=== PATIENT | male | born 1980 | race Caucasian/White ===

== ENCOUNTER 2017-02-16 14:56 | Emergency (ER) | payer SELFPAY ==
[2017-02-16] MEDS ORDERED: KETOROLAC TROMETHAMINE 60 MG/2 ML VIAL ONE (17:17)
--- NOTE | 2017-02-16 18:12 | US ---
Indications: Pain for 4 days. Comparison: None Findings: Multiple grayscale, color-flow and duplex Doppler images during scrotal ultrasound are obtained. Right testis: 4.8 x 2.0 x 3.1 cm with normal blood flow Echogenicity: Normal Epididymis: 1.0 x 1.0 x 0.9 cm. Epididymal head cyst is present measuring 0.4 x 0.3 x 0.2 cm. Other: Multiple small nodes are identified in the area of pain, along the inguinal canal. Largest measures 1.7 x 0.5 x 0.7 cm. Left testis: 4.5 x 2.2 x 2.8 cm with blood flow. Echogenicity: Normal Epididymis: 0.8 x 1.4 x 1.1 cm. Epididymal head cyst is noted measuring 0.1 x 0.1 x 0.2 cm. Other: None Impression: Normal blood flow and echogenicity to the testis bilaterally. Multiple small nodes are identified in the inguinal region on the right corresponding to the area of pain. Close clinical and radiographic follow-up are recommended. Findings were called to Dr. Crews at approximately 1807 hours on 02/16/2017.
== END 2017-02-16 18:52 | disposition home or self-care (01) ==
LOC: ED 14:56
DX: S39.011A Strain of muscle, fascia and tendon of abdomen, initial encounter (principal); X58.XXXA Exposure to other specified factors, initial encounter
CPT/HCPCS: 76870; 99283 ×2; J1885